=== PATIENT | female | born 1945 | race Caucasian/White ===

== ENCOUNTER 2020-07-10 10:41 | Outpatient (CLI) | payer MEDICARE, OTHER, SELFPAY ==
--- NOTE | 2020-07-10 | US_ITS ---
WS: [id number] ULTRASOUND SOFT TISSUES upper thorax. HISTORY: NECK PAIN ACUTE COMPARISON: None available. TECHNIQUE: 2-D and color Doppler imaging is submitted. Ultrasound is directed to the upper medial LEFT thorax near the medial clavicle. There is increased soft tissue surrounding the clavicular head. No color Doppler was obtained to eval uate for an acute inflammatory process. There is no fluid. 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
== END 2020-07-10 10:42 | disposition home or self-care (01) ==
PROVIDERS: PCP Family Medicine; Visit Provider Family Medicine
DX: M54.2 Cervicalgia (principal)
CPT/HCPCS: 76604

== ENCOUNTER 2023-08-07 08:42 | Outpatient (CLI) | payer MEDICARE, OTHER, SELFPAY ==
--- NOTE | 2023-08-07 08:47 | USCV_ITS ---
Kevin Phyllis Age: 77 Gender: F : 1945 Exam Date: 08/07/2023 09:06 Ordering Phys: Booker Gibson MD Technologist: Jose Kamara Exam Location: [facility] [place] Indication: A FIB BP: 120 / 73 HR: Rhythm: Sinus Technical Quality: Adequate MEASUREMENTS (Male / Female) Normal Values 2D ECHO LVOT Diameter 2.0 cm LV Ejection Fraction MOD 2C 63.7 % LV Ejection Fraction 2C AL 64.2 % LA Diameter 4.6 cm RA Systolic Volume 4C AL 50.6 ml RA Systolic Volume 4C MOD 48.8 ml Aorta at Sinotubular Diameter 2.1 cm IVC Diameter 1.7 cm M-MODE LA Ao Ratio MM 1.4 AV Cusp Separation MM 1.2 cm DOPPLER AV Peak Velocity 187.5 cm/s LVOT Peak Velocity 73.0 cm/s AV Area Cont Eq vti 1.4 cm squared AV Area Cont Eq pk 1.3 cm squared MV Peak Velocity 397.5 cm/s MV Area PHT 7.5 cm squared Mitral E to A Ratio 4.4 TV Peak Velocity 174.3 cm/s TR Peak Velocity 331.0 cm/s TR Peak Gradient 43.8 mmHg TR Mean Velocity 229.0 cm/s TR Mean Gradient 24.6 mmHg TR Velocity Time Integral 75.2 cm PV Peak Velocity 75.7 cm/s RV Ejection Time 0.3 s FINDINGS Left Ventricle Left ventricle is normal in size. LV systolic function is normal with EF 55 to 60%. No regional wall motion abnormalities are seen. Right Ventricle Normal in size and function Right Atrium Normal in size Left Atrium Dilated Mitral Valve Moderate mitral annular calcification. Mild mitral regurgitation. Aortic Valve Aortic valve is thickened. Mild aortic stenosis with aortic valve area 1.39 cm squared and mean gradient of 11 mmHg. Tricuspid Valve Mild tricuspid regurgitation. RVSP is 40-45mmHg. This is consistent with mild pulmonary hypertension. Pulmonic Valve Not well visualized Pericardium Normal Aorta Normal in size IVC Appears to be normal CONCLUSIONS LV systolic function is normal with EF of 55-60% Left atrial dilation Mild mitral regurgitation Mild aortic stenosis with aortic valve area of 1.39cm2 and mean gradient of 11 mmHg. Mild tricuspid regurgitation. Mild pulmonary hypertension No comparison studies are available. Antonio Rudolph MD (Electronically Signed) Final Date: 21 August 2023 14:15 S
== END 2023-08-07 08:43 | disposition home or self-care (01) ==
LOC: RAD 08:43
PROVIDERS: PCP Family Medicine; Visit Provider Family Medicine
DX: I48.91 Unspecified atrial fibrillation (principal); I08.3 Combined rheumatic disorders of mitral, aortic and tricuspid valves
CPT/HCPCS: 93306

== ENCOUNTER 2023-08-13 14:16 | Outpatient (CLI) | payer MEDICARE, OTHER, SELFPAY ==
--- NOTE | 2023-08-13 14:28 | MM_ITS ---
WS: [id number] BILATERAL 3D TOMOSYNTHESIS DIGITAL DIAGNOSTIC MAMMOGRAPHY WITH CAD CLINICAL INFORMATION: ENLARGED LYMPH NODES HISTORY: Reported enlarged axillary lymph nodes on outside cardiac CT. Images and report not availabl e. COMPARISON: 2010 TECHNIQUE: Bilateral CC, MLO, and ML views. FINDINGS: The breasts are composed of heterogeneous fibroglandular density, which can limit the detection of sm all underlying mass lesions. A few incidental punctate calcifications. Dense parenchymal tissue subar eolar RIGHT breast. Ultrasound of this area will be performed. Ultrasound of both axilla is pending. ULTRASOUND BREAST BILATERAL TECHNIQUE: Ultrasound bilateral breast focused area of concern. CLINICAL INFORMATION: ENLARGED LYMPH NODES FINDINGS: RIGHT BREAST: Ultrasound subareolar RIGHT breast. Dense underlying parenchymal tissue. No cystic or s olid lesions in this area. RIGHT BREAST: Ultrasound of the RIGHT axilla. 2 abnormal appearing lymph nodes are noted with cortica l thickening measuring 1.3 x 1.5 x 1.0 cm and 1.0 x 1.1 x 1.0 cm. Partial replacement of the normal f atty hilum. Recommend ultrasound-guided biopsy in further evaluation. LEFT BREAST: Ultrasound of the LEFT axilla. Normal lymph node noted in the LEFT axilla measuring 1.0 x 0.9 x 0.3 cm with normal fatty hilum. IMPRESSION: MM/[place] [id number] BI-RADS: 4-Suspicious Finding-Biopsy Should Be Considered FOLLOW UP: US Guided Biopsy Recommended Recommend ultrasound-guided biopsy of the abnormal lymph node RIGHT axilla.
== END 2023-08-13 14:17 | disposition home or self-care (01) ==
LOC: RAD 14:16
PROVIDERS: PCP Family Medicine; Visit Provider Family Medicine
DX: R59.0 Localized enlarged lymph nodes (principal); R92.323 Mammographic fibroglandular density, bilateral breasts
CPT/HCPCS: 76642; 77062; G0279

== ENCOUNTER 2023-09-04 11:30 | Outpatient (CLI) | payer MEDICARE, OTHER, SELFPAY ==
--- NOTE | 2023-09-04 11:36 | US_ITS ---
WS: [id number] ULTRASOUND GUIDED BIOPSY RIGHT AXILLARY LYMPH NODE. HISTORY: Slightly abnormal lymph node noted by ultrasound on 08/13/2023. Procedure, risks, and complications are explained to the patient. Consent was obtained. Skin is clean sed with ChloraPrep and anesthetized with 1% buffered lidocaine. Multiple core biopsies are performed with a 20-gauge achieve needle. Core specimen placed in RPMI and also formalin for pathology. No complications were encountered. Sterile dressing was placed. All questions were answered. IMPRESSION: Uncomplicated core biopsy of a slightly abnormal RIGHT axillary lymph node. Specimen submitted in for vadim and [facility].
[2023-09-08 09:42] LABS: Lymphoma Profile (BBPL) See Report
== END 2023-09-04 11:31 | disposition home or self-care (01) ==
LOC: RAD 11:31
PROVIDERS: PCP Family Medicine; Visit Provider Family Medicine
DX: R92.8 Other abnormal and inconclusive findings on diagnostic imaging of breast (principal)
CPT/HCPCS: 38505; 76942; 88184; 88185; 88305

== ENCOUNTER → 2023-10-28 12:37 | Outpatient (BNVA) | payer MEDICARE, OTHER, SELFPAY | PROVIDERS: PCP Family Medicine; Referring Provider Family Medicine; Visit Provider Internal Medicine | DX: R07.9 Chest pain, unspecified (principal); I35.0 Nonrheumatic aortic (valve) stenosis; I00 Rheumatic fever without heart involvement; R01.1 Cardiac murmur, unspecified; I48.91 Unspecified atrial fibrillation; I10 Essential (primary) hypertension | CPT/HCPCS: 93005; 99204 ==

== ENCOUNTER 2023-11-05 08:53 | Outpatient (CLI) | payer MEDICARE, OTHER, SELFPAY ==
--- NOTE | 2023-11-05 | ECG_ITS ---
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
[2023-11-05 09:10] VITALS: BMI 31.1
--- NOTE | 2023-11-05 09:15 | NMCV_ITS ---
NM delia perf SPECT r/s* [id number] Phyllis Brown Age: 78 Gender: F : 1945 Exam Date: 11/05/2023 09:15 Ordering Phys: Antonio Rudolph M.D ([email or web address]) Technologist: ANNITA Smart Exam Location: [facility] Indications: CHEST PAIN STRESS TEST Please see separate stress test report in [facility] for full findings IMAGE PROTOCOL Rest/Stress 1 Lexiscan Day Radiopharmaceutical Dose (mCi) Administration Site Administered by Rest: Tc-99m 10.6 IV ANNITA Elam Sestamibi Stress:Tc-99m 32.7 IV ANNITA Elam Sestamibi Rest: 05-Nov-2023 60 Discovery 630 Stress: 05-Nov-2023 30 Discovery 630 0.4mg Lexiscan. Images obtained in supine and prone position. SPECT RESULTS Technical Quality: Excellent Raw Data Analysis: Normal Image Corrections: No attenuation or motion correction applied Summed Stress Score: 8 Summed Rest Score: 6 Summed Difference Score: 2 PERFUSION FINDINGS SPECT images demonstrate homogeneous tracer distribution throughout the myocardium. FUNCTIONAL RESULTS (calculated via Gated SPECT) Stress Image LV EF (%): 91 Stress EDV (mL):67 TID: 1 Stress ESV (mL):6 FUNCTIONAL FINDINGS: There is normal left ventricular systolic function. IMPRESSIONS 1. Normal myocardial perfusion imaging with no evidence of ischemia 2. LV systolic function is normal Antonio Rudolph MD (Electronically Signed) Final Date: 05 November 2023 16:37 S
[2023-11-05] MEDS: regadenoson 0.4 Mg/5 ml Syringe 0.400000000000000022 MG IVP (10:55)
[2023-11-05 11:12] VITALS: BP 145/71; PULSE 81
== END 2023-11-05 08:54 | disposition home or self-care (01) ==
LOC: CDL 08:54
PROVIDERS: PCP Family Medicine; Visit Provider Internal Medicine
DX: R07.9 Chest pain, unspecified (principal); R06.02 Shortness of breath
CPT/HCPCS: 36415; 78452; 93017; 96374; A9500; J2785

== ENCOUNTER 2023-12-20 20:29 | Emergency (ER) | payer MEDICARE, OTHER, SELFPAY ==
[2023-12-20 20:47] VITALS: BP 152/79; PULSE 70; RESP 20; TEMP 36.6; O2SAT 99; BMI 31.1
--- NOTE | 2023-12-20 21:36 | ED_ITS ---
HPI - Back Pain/Injury 2 General: Chief Complaint: Back Pain/Injury Stated Complaint: Back Pain\Left Side Time Seen by Provider: 12/20/23 20:49 History of Present Illness: 78-year-old female fell 2 weeks ago ena ing her head and injuring her left side. Patient reports that she had felt like she was getting better up until the last 2 to 3 days. Since then patient is having increasing pain and discomfort to the left posterior ribs. Patient appears nontoxic. Patient appears in moderate to severe pain. Pain is aggravated with movement. Review of Systems 2 General: Reports: 10 or more systems reviewed and unremarkable except in HPI and below Musc: Reports: back pain PFSH ED 2 PFSH: Social History Smoking and tobacco/nicotine status: never used tobacco/nicotine Physical Exam 2 Const: COMMON NORMALS: alert HENMT: COMMON NORMALS: normocephalic HEAD & SCALP: normocephalic Neck/C-Spine: COMMON NORMALS: full ROM Chest: CHEST: Yes tenderness (Posterior left medial ribs) Resp: COMMON NORMALS: normal respiratory effort and clear to auscultation bilaterally AUSCULTATION: clear to auscultation bilaterally Cardio: COMMON NORMALS: regular rate and regular rhythm RATE: regular rate RHYTHM: regular rhythm GI: COMMON NORMALS: Soft to palpation and non-tender PALPATION: Yes Soft to palpation : COMMON NORMALS: Yes no CVA tenderness BLADDER/KIDNEY EXAM: Yes no CVA tenderness Back/Pelvis: COMMON NORMALS: no CVA tenderness and thoracic and lumbar spine normal to inspection Extremity: COMMON NORMALS: normal to inspection and full ROM Neuro: SENSORIUM/ORIENTATION: Yes alert Skin: COMMON NORMALS: turgor normal GENERAL SKIN EXAM: turgor normal Course 2 Vital Signs: Vital signs: Vital Signs Temperature 97.9 F 12/20/23 20:47 Pulse Rate 62 12/20/23 23:43 Respiratory Rate 16 12/20/23 21:55 Blood Pressure 157/63 12/20/23 23:43 Pulse Oximetry 93 12/20/23 23:43 Oxygen Delivery Me thod Room Air 12/20/23 22:35 MDM - Back Pain/Injury Medical Decision Making Patient comes in today for complaints of increased rib pain. On exam patient appears nontoxic. Patient has left medial rib pain posteriorly to the chest. Palpation causes tenderness. Movement causes pain. Vital signs are normal except elevated blood pressure. Differential diagnosis includes pneumothorax, rib fracture, costochondritis. CBC CMP was unremarkable. Patient noted to have left anterior lateral fifth and sixth rib fractures no pneumothorax. Patient had improvement of pain after Zofran and morphine. Will continue patient with hydrocodone and recommend follow-up with primary care return to ED for new concerns or worsening symptoms such as shortness of breath or high fever. Labs 12/20/23 21:50 12/20/23 21:[address] 12/20/23 21:39 IMPRESSION: 1. Acute appearing left anterolateral 5th and 6th rib fractures. No pneumothorax. 2. No evidence of acute cardiopulmonary disease. Laboratory Results WBC 6.43 10^3/uL (3.29-11.43) 12/20/23 21:50 RBC 4.51 10^6/uL (3.85-5.65) 12/20/23 21:50 Hgb 13.80 g/dL (11.27-16.99) 12/20/23 21:50 Hct 42.0 % (36-47) 12/20/23 21:50 MCV 93.1 fl (85-98) 12/20/23 21:50 MCH 30.6 pg (27-33) 12/20/23 21:50 MCHC 32.9 g/dL (30-55) 12/20/23 21:50 RDW 13.6 % (12.1-15.1) 12/20/23 21:50 Plt Count 197 10^3/cmm (157-399) 12/20/23 21:50 MPV 10.3 fL (7.4-10.4) 12/20/23 21:50 Neut % (Auto) 53.5 % 12/20/23 21:50 Lymph % (Auto) 34.1 % 12/20/23 21:50 [place] % (Auto) 9.6 % 12/20/23 21:50 Eos % (Auto) 1.9 % 12/20/23 21:50 Baso % (Auto) 0.6 % 12/20/23 21:50 Neut # (Auto) 3.44 10^3/uL (1.8-7.7) 12/20/23 21:50 Lymph # (Auto) 2.2 10^3/uL (0.8-4.8) 12/20/23 21:50 [place] # (Auto) 0.6 10^3/uL (0.2-0.9) 12/20/23 21:50 Eos # (Auto) 0.1 10^3/uL (0.0-0.8) 12/20/23 21:50 Baso # (Auto) 0.0 10^3/uL (0.0-0.1) 12/20/23 21:50 Nucleated RBC % (auto) 0 % 12/20/23 21:50 Nucleated RBCs # 0.0 /100WBC 12/20/23 21:50 Sodium 138 mmol/L (136-145) 12/20/23 21:50 Potassium 4.1 mmol/L (3.5-5.1) 12/20/23 21:50 Chloride 103 mmol/L (98-107) 12/20/23 21:50 Carbon Dioxide 19 mmol/L (22-29) L 12/20/23 21:50 Anion Gap 20.1 (5-19) H 12/20/23 21:50 BUN 22 mg/dL (8-23) 12/20/23 21:50 Creatinine 0.8 mg/dL (0.5-0.9) 12/20/23 21:50 GFR Calculation Not Reportable 12/20/23 21:50 Glucose 101 mg/dL (65-115) 12/20/23 21:50 Calculated Osmolality 289 mOsm/kg (285-295) 12/20/23 21:50 Calcium 10.0 mg/dL (8.5-10.5) 12/20/23 21:50 Total Bilirubin 0.3 mg/dL (0.15-1.2) 12/20/23 21:50 AST 53 U/L (0-32) H 12/20/23 21:50 ALT 36 U/L (0-33) H 12/20/23 21:50 Alkaline Phosphatase 98 U/L (35-105) 12/20/23 21:50 Total Protein 8.4 g/dL (6.6-8.7) 12/20/23 21:50 Albumin 4.3 g/dL (3.5-5.2) 12/20/23 21:50 Globulin 4.1 g/dL (1.3-4.6) 12/20/23 21:50 Urine Color Yellow (Yellow) 12/20/23 21:50 Urine Appearance Clear (CLEAR) 12/20/23 21:50 Urine pH 7 (5-7) 12/20/23 21:50 Ur Specific Carbon 1.000 (1.005-1.030) L 12/20/23 21:50 Urine Protein Neg (Negative) 12/20/23 21:50 Urine Glucose (UA) Norm (Normal) 12/20/23 21:50 Urine Ketones Negative (Negative) 12/20/23 21:50 Urine Blood Neg (Negative) 12/20/23 21:50 Urine Nitrate Negative (Negative) 12/20/23 21:50 Urine Bilirubin Neg (Negative) 12/20/23 21:50 Urine Urobilinogen Neg mg/dL (Negative) 12/20/23 21:50 Ur Leukocyte Esterase Trace (Negative) H 12/20/23 21:50 Urine RBC 0-4 /hpf (0-2) H 12/20/23 21:50 Urine WBC 0-4 /hpf (0-5) H 12/20/23 21:50 Ur Squamous Epith Cells 3-5 /hpf (0-5) 12/20/23 21:50 Amorphous Sediment Not Reportable 12/20/23 21:50 Urine Bacteria Trace /hpf (NONE) 12/20/23 21:50 All radiology interpretation(s) finalized by discharge Discharge Plan Discharge Patient Disposition: Home Clinical Impression: Fracture, ribs Qualifiers: Encounter type: initial encounter Fracture type: closed Laterality: left Q ualified Code(s): S22.42XA - Multiple fractures of ribs, left side, initial encounter for closed fracture Condition: Stable Prescriptions: New hydrocodone-acetaminophen 5-325 mg tablet 1 tab PO Q6H PRN (Reason: pain) Qty: 12 0RF No Action albuterol sulfate 90 mcg/actuation aerosol powdr breath activated 2 inh inhalation Q6H PRN Asmanex HFA 50 mcg/actuation HFA aerosol inhaler inhalation Eliquis 5 mg tablet 5 mg PO BID metformin 500 mg tablet 500 mg PO BID valsartan 80 mg tablet 80 mg PO DAILY diltiazem HCl 120 mg capsule,extended release 12 hr 120 mg PO BID Qty: 180 3RF hydrocodone-acetaminophen 5-325 mg tablet 1 tab PO Q6H PRN (Reason: pain) Qty: 10 0RF Discharge Orders: Discharge ED (Routine); Ordered 12/20/23 Ordered By: Pedro Poon Referrals: Booker Gibson MD [Primary Care Provider] - Discharge Diet: Usual diet Discharge Activity: Increase activity as tolerated Patient Instructions: Rib Fracture (ED) Activity Restrictions/Additional Instructions: Thank you for choosing [facility] for your healthcare needs today. Please realize that you were seen in the emergency department and that we are providing you with an emergency medical screening exam and this may not be a complete and all exclusive of all testing and/or medical workup we may need to determine your element or severity of your illness. It is very important that you follow-up as instructed with your primary care provider or specialist for the additional evaluation and to discuss your medical treatment plan. You may return to the emergency department should you have concerns or if your condition changes or worsens in any way. Coding Level of Care Code ED Diamond Cleaver for Chaz Angela
--- NOTE | 2023-12-20 21:39 | CTR_ITS ---
PROCEDURE INFORMATION: Exam: CT Chest Without Contrast; Diagnostic Exam date and time: 12/20/2023 10:00 PM Age: 78 years old Clinical indication: Other: Left sided upper back pain; Patient HX: PT C/O worsening upper left sided back pain. Patient sustained a fall on 12/04/2023 and diagnosed with unspecified left sided costal contusion. ; Additional info: Fall injury TECHNIQUE: Imaging protocol: Diagnostic computed tomography of the chest without contrast. Radiation optimization: All CT scans at this facility use at least one of these dose optimization techniques: automated exposure control; mA and/or kV adjustment per patient size (includes targeted exams where dose is matched to clinical indication); or iterative reconstruction. COMPARISON: CR XR ribs LT mn 3V w CXR1V [id number] 12/04/2023 2:53 PM RADIATION DOSE METRICS: Total DLP (mGy-cm): 500.14 FINDINGS: Lungs: Mild atelectasis or scarring in the lingula and left lower lobe. No pulmonary consolidation. No evidence of mass or suspicious pulmonary nodule. Pleural spaces: No pleural effusion or pneumothorax. Heart: Mild cardiomegaly. No pericardial effusion or pericardial thickening. Coronary arteries: Moderate coronary artery calcification. Lymph nodes: No enlarged lymph nodes are identified. Vasculature: Atherosclerotic calcifications of the aorta are present. No aneurysm is identified. Bones/joints: Breathing artifact limits evaluation for rib fracture. Acute appearing left anterolateral 5th rib fracture. Age-indeterminate left anterolateral 6th rib fracture, likely acute. No segmental fractures identified. Age-indeterminate mild superior endplate compression fracture of T11, likely chronic. Soft tissues: The soft tissues are within normal limits. CT/CT chest wo con [id number] IMPRESSION: 1. Acute appearing left anterolateral 5th and 6th rib fractures. No pneumothorax. 2. No evidence of acute cardiopulmonary disease.
[2023-12-20 21:40] VITALS: BP 211/90; PULSE 73; RESP 18; O2SAT 98
[2023-12-20] MEDS: ondansetron 2 mg/ML SDV 2 mL 4 MG IVP (21:53)
[2023-12-20 21:55] VITALS: RESP 16; O2SAT 94
[2023-12-20] MEDS: morphine 4 mg/mL SDV 1 mL IVP (21:55)
[2023-12-20 21:57] LABS: Basophils % 0.6 %; Eosinophils # 0.1 10^3/uL (0.0-0.8); Eosinophils % 1.9 %; Lymphocytes # 2.2 10^3/uL (0.8-4.8); Lymphocytes % 34.1 %; Mean Corpuscular HGB Conc 32.9 g/dL (30-55); Mean Corpuscular Hemoglobin 30.6 pg (27-33); Mean Corpuscular Volume 93.1 fl (85-98); Mean Platelet Volume 10.3 fL (7.4-10.4); Monocytes # 0.6 10^3/uL (0.2-0.9); Monocytes % 9.6 %; Neutrophils # 3.44 10^3/uL (1.8-7.7); Neutrophils % 53.5 %; Nucleated Red Blood Cells % 0 %; Platelet Count 197 10^3/cmm (157-399); Red Blood Count 4.51 10^6/uL (3.85-5.65); Red Cell Distribution Width 13.6 % (12.1-15.1); White Blood Count 6.43 10^3/uL (3.29-11.43)
[2023-12-20 22:13] LABS: Add Urine Microscopic? YES; Bacteria Urine TRACE /hpf; Bilirubin Urine Neg (Negative); Blood Urine Neg (Negative); Glucose Urine UA Norm (Normal); Ketones Urine Negative (Negative); Leukocyte Esterase Urine Trace (Negative); Nitrate Urine Negative (Negative); Protein Urine Neg (Negative); RBC Urine 0-4 /hpf (0-2); Urine Appearance Clear (CLEAR); Urine Color Yellow (Yellow); Urobilinogen Urine Neg (Negative); WBC Urine 0-4 /hpf (0-5); pH Urine 7 (5-7)
[2023-12-20 22:18] LABS: Alanine Aminotransferase 36 U/L (0-33); Albumin Level 4.3 g/dL (3.5-5.2); Alkaline Phosphatase 98 U/L (35-105); Anion Gap 20.1 (5-19); Aspartate Amino Transferase 53 U/L (0-32); Blood Urea Nitrogen 22 mg/dL (8-23); Carbon Dioxide 19 mmol/L (22-29); Chloride 103 mmol/L (98-107); Creatinine Clr Calc Pharmacy 55.7233; Globulin 4.1 g/dL (1.3-4.6); Glucose 101 mg/dL (65-115); Osmolality Calculated 289 mOsm/kg (285-295); Potassium 4.1 mmol/L (3.5-5.1); Sodium 138 mmol/L (136-145); Total Bilirubin 0.3 mg/dL (0.15-1.2); Total Protein 8.4 g/dL (6.6-8.7)
[2023-12-20 22:35] VITALS: BP 173/75; PULSE 68; O2SAT 95
[2023-12-20 23:13] VITALS: BP 168/68; PULSE 71; O2SAT 93
[2023-12-20 23:43] VITALS: BP 157/63; PULSE 62; O2SAT 93
--- NOTE | 2023-12-21 00:08 | PC.NURSE ---
Patient was sent home with one hydrocodone- acetaminophen 5-325. MERA Poon approved.
[2023-12-21 00:11] VITALS: BP 152/58; PULSE 62; O2SAT 94
== END 2023-12-21 00:13 | disposition home or self-care (01) ==
PROVIDERS: Emergency Provider Nurse Practitioner Family; PCP Family Medicine
DX: S22.42XA Multiple fractures of ribs, left side, initial encounter for closed fracture (principal); Z79.01 Long term (current) use of anticoagulants; Z79.84 Long term (current) use of oral hypoglycemic drugs; W19.XXXA Unspecified fall, initial encounter
CPT/HCPCS: 71250; 80053; 81001; 85025; 96374; 96375; 99285; J2270; J2405

== ENCOUNTER → 2023-12-24 12:44 | Outpatient (BNVA) | payer MEDICARE, OTHER, SELFPAY | PROVIDERS: PCP Family Medicine; Visit Provider Internal Medicine | DX: I48.91 Unspecified atrial fibrillation (principal); Z79.01 Long term (current) use of anticoagulants | CPT/HCPCS: 99214 ==

== ENCOUNTER → 2024-06-30 14:11 | Outpatient (BNVA) | payer MEDICARE, OTHER, SELFPAY | PROVIDERS: PCP Family Medicine; Visit Provider Internal Medicine | DX: I48.91 Unspecified atrial fibrillation (principal); I10 Essential (primary) hypertension; Z79.01 Long term (current) use of anticoagulants | CPT/HCPCS: 99214 ==

== ENCOUNTER → 2025-05-24 12:00 | Outpatient (BNVA) | payer MEDICARE, OTHER, SELFPAY | PROVIDERS: PCP Family Medicine; Visit Provider Internal Medicine | DX: I10 Essential (primary) hypertension (principal) | CPT/HCPCS: 80048; 83880 ==